=== PATIENT | female | born 1970 | race Caucasian/White ===

== ENCOUNTER → 2019-07-05 | Outpatient (CLI) | payer OTHER | END | disposition home or self-care (01) | LOC: CFH 11:59 | PROVIDERS: ATTEND Obstetrics & Gynecology | DX: Z12.31 Encounter for screening mammogram for malignant neoplasm of breast (principal); R59.1 Generalized enlarged lymph nodes; R10.2 Pelvic and perineal pain; N64.89 Other specified disorders of breast; Z90.721 Acquired absence of ovaries, unilateral | CPT/HCPCS: 76536; 76856; 77063; 77067 ==